=== PATIENT | female | born 1975 | race African-American/Black ===

== ENCOUNTER 2016-12-14 18:51 | Emergency (ER) | payer BC ==
[~2016-12-14] VITALS: Ht 157.5 cm; Wt 79.4 kg
[~2016-12-14 18:51] MED LIST: ADVAIR 250-501 EACH IH; ADVAIRDISKUS; ALBUTEROL NEB; ALEVE220 M1 PO; ALPRAZOLAM 0.0.25 M1; AMARYL4 MG; CIPRO250 M1 PO; FLEXERIL; GLIPIZIDE-METF1 EAC2 PO; GLUCOPHAGE500 MG PO; HCTZ; HYDROCHLOROTH12.5 MG PO; LANTUS SUBQ; NORCO 5-325 TA1 EACH PO; PAXIL 20 MG TAB20 M1; PAXIL10 MG PO; PROVENTIL IH; SENNA S TABLET1 EACH PO; WELLBUTRIN 100100 MG; XANAX
[2016-12-14] MEDS ORDERED: NORVASC10 MG PO (19:23)
[2016-12-14] MEDS ORDERED: JANUMET 50-5001 EACH PO (19:27)
[2016-12-14 19:30] LABS: ABSOLUTE NEUTROPHILS 6.5 thou/uL (1.4-8.2); BASOPHILS 1.1 % (0.0-2.0); HEMATOCRIT 39.8 % (37.0-47.0); HEMOGLOBIN 13.2 gm/dL (12.0-15.0); LYMPHOCYTES 29.5 % (24.0-44.0); MCH 27.6 pg (26.0-34.0); MCHC 33.1 g/dL (28.0-37.0); MCV 83.4 fL (80.0-100.0); MONOCYTES 4.8 % (1.0-8.0); PLATELET COUNT 329 thou/uL (150-400); POLYS 63.6 % (36.0-66.0); RBC 4.77 mil/uL (4.20-5.00); RDW 15.6 % (10.5-14.5); WBC 10.2 thou/uL (4.0-11.0)
[2016-12-14 19:33] LABS: MANUAL DIFF NO
[2016-12-14 19:43] LABS: ANION GAP 9 mmol/L (7-16); BUN 8 mg/dL (7-18); CHLORIDE 100 mmol/L (98-107); CO2 25 mmol/L (21-32); CREATININE 0.8 mg/dL (0.6-1.3); GLUCOSE 393 mg/dL (70-99); POTASSIUM 3.7 mmol/L (3.5-5.1); SODIUM 134 mmol/L (136-145)
[2016-12-14 19:47] LABS: ALBUMIN 3.3 g/dL (3.4-5.0); ALKALINE PHOSPHATASE 80 U/L (46-116); DIRECT BILIRUBIN < 0.1 mg/dL (<0.1-0.3); SGOT 10 U/L (15-37); SGPT 17 U/L (30-65); TOTAL BILIRUBIN 0.2 mg/dL (<0.1-1.0); TOTAL PROTEIN 7.2 g/dL (6.4-8.2)
[2016-12-14] MEDS ORDERED: PROTONIX40 MG PO (20:18)
[2016-12-14 20:36] VITALS: BP 132/81
== END 2016-12-14 20:37 | disposition home or self-care (01) ==
LOC: ER 18:51
PROVIDERS: Emergency Medicine
DX: R10.11 Right upper quadrant pain (principal); K62.5 Hemorrhage of anus and rectum; E11.9 Type 2 diabetes mellitus without complications; I10 Essential (primary) hypertension; J44.9 Chronic obstructive pulmonary disease, unspecified; Z88.5 Allergy status to narcotic agent; Z88.6 Allergy status to analgesic agent; F17.210 Nicotine dependence, cigarettes, uncomplicated; F10.99 Alcohol use, unspecified with unspecified alcohol-induced disorder

== ENCOUNTER 2017-04-23 22:27 | Emergency (ER) | payer BC ==
[~2017-04-23] VITALS: Ht 157.5 cm; Wt 80.7 kg
[~2017-04-23 22:27] MED LIST changes: +BACTRIM DS TAB1 EACH PO; +IBUPROFEN 600600 M1 PO; +JANUMET 50-5001 EACH PO; +NORVASC10 MG PO; +PROTONIX40 MG PO
[2017-04-23] MEDS ORDERED: ZONISAMIDE 100100 M1 PO (22:36)
[2017-04-23] MEDS ORDERED: JANUMET XR 50-1 EAC1 PO (22:36)
[2017-04-23] MEDS ORDERED: GABAPENTIN 100100 MG PO (22:37)
[2017-04-23 23:11] LABS: ABSOLUTE NEUTROPHILS 8.6 thou/uL (1.4-8.2); BASOPHILS 0.8 % (0.0-2.0); EOSINOPHILS 0.9 % (0.0-3.0); HEMATOCRIT 38.9 % (37.0-47.0); LYMPHOCYTES 29.3 % (24.0-44.0); MCH 28.3 pg (26.0-34.0); MCHC 33.5 g/dL (28.0-37.0); MCV 84.5 fL (80.0-100.0); MONOCYTES 5.7 % (1.0-8.0); PLATELET COUNT 309 thou/uL (150-400); POLYS 63.3 % (36.0-66.0); WBC 13.6 thou/uL (4.0-11.0)
[2017-04-23 23:13] LABS: MANUAL DIFF NO
[2017-04-23 23:17] LABS: CALCIUM 8.9 mg/dL (8.5-10.1); CREATININE 0.8 mg/dL (0.6-1.0); POTASSIUM 3.8 mmol/L (3.5-5.1)
[2017-04-23] MEDS ORDERED: BACTRIM DS TAB1 EAC1 PO (23:35)
[2017-04-24 00:40] VITALS: BP 122/70
== END 2017-04-24 00:40 | disposition home or self-care (01) ==
LOC: ER 22:27
PROVIDERS: Emergency Medicine
DX: N76.4 Abscess of vulva (principal); E11.9 Type 2 diabetes mellitus without complications; I10 Essential (primary) hypertension; J44.9 Chronic obstructive pulmonary disease, unspecified; F17.210 Nicotine dependence, cigarettes, uncomplicated; F10.99 Alcohol use, unspecified with unspecified alcohol-induced disorder; Z79.4 Long term (current) use of insulin; Z88.6 Allergy status to analgesic agent; Z88.5 Allergy status to narcotic agent

== ENCOUNTER 2018-01-13 17:18 | Emergency (ER) | payer BC ==
[~2018-01-13] VITALS: Ht 165.1 cm; Wt 76.2 kg
--- NOTE | ~2018-01-13 | EKG ---
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 01/14/18 0853 1808 180 Moses Baldwin MD, FACC /EPI
[~2018-01-13 17:18] MED LIST changes: +BACTRIM DS TAB1 EAC1 PO; +DOXYCYCLINE 10100 MG PO; +GABAPENTIN 100100 MG PO; +JANUMET XR 50-1 EAC1 PO; +TRAMADOL 50 MG50 MG PO; +ZONISAMIDE 100100 M1 PO
[2018-01-13 17:48] LABS: URINE BILIRUBIN NEGATIVE (Negative); URINE BLOOD NEGATIVE (Negative); URINE CLARITY CLEAR; URINE COLOR YELLOW; URINE GLUCOSE-RANDOM* 3+ (Negative); URINE KETONES NEGATIVE (Negative); URINE LEUKOCYTES-REFLEX NEGATIVE (Negative); URINE NITRITE-REFLEX NEGATIVE (Negative); URINE PROTEIN (DIPSTICK) NEGATIVE (Negative); URINE SPECIFIC GRAVITY >= 1.030 (1.005-1.035); URINE UROBILINOGEN 0.2 E.U./dl (0.2-1.0)
[2018-01-13 18:01] LABS: ABSOLUTE NEUTROPHILS 6.9 thou/uL (1.4-8.2); BASOPHILS 1.1 % (0.0-2.0); EOSINOPHILS 0.9 % (0.0-3.0); HEMATOCRIT 41.2 % (37.0-47.0); HEMOGLOBIN 13.7 gm/dL (12.0-15.0); LYMPHOCYTES 32.6 % (24.0-44.0); MCH 27.9 pg (26.0-34.0); MCHC 33.1 g/dL (28.0-37.0); MCV 84.2 fL (80.0-100.0); MONOCYTES 5.7 % (1.0-8.0); PLATELET COUNT 350 thou/uL (150-400); POLYS 59.7 % (36.0-66.0); RDW 16.3 % (10.5-14.5); WBC 11.5 thou/uL (4.0-11.0)
[2018-01-13 18:10] LABS: ANION GAP 11 mmol/L (7-16); BUN 8 mg/dL (7-18); CALCIUM 9.8 mg/dL (8.5-10.1); CHLORIDE 102 mmol/L (98-107); CO2 22 mmol/L (21-32); CREATININE 0.6 mg/dL (0.6-1.0); GLUCOSE 136 mg/dL (74-106); POTASSIUM 5.1 mmol/L (3.5-5.1); SODIUM 135 mmol/L (136-145)
[2018-01-13 18:19] LABS: ALBUMIN 3.7 g/dL (3.4-5.0); LIPASE 205 U/L (73-393); SGOT 45 U/L (15-37); SGPT 20 U/L (30-65); TOTAL BILIRUBIN 0.5 mg/dL (<0.1-1.0); TROPONIN-I < 0.04 ng/mL (<0.06)
[2018-01-13] MEDS ORDERED: REGLAN 10 MG TA10 MG PO (19:26)
[2018-01-13] MEDS ORDERED: ZOFRAN ODT4 MG PO (19:26)
[2018-01-13 19:49] VITALS: BP 143/71
== END 2018-01-13 19:59 | disposition home or self-care (01) ==
LOC: ER 17:18
PROVIDERS: Physician Assistant
DX: R51 Headache (principal); R10.9 Unspecified abdominal pain; R11.2 Nausea with vomiting, unspecified; I10 Essential (primary) hypertension; E11.9 Type 2 diabetes mellitus without complications; J44.9 Chronic obstructive pulmonary disease, unspecified; F17.210 Nicotine dependence, cigarettes, uncomplicated; Z88.5 Allergy status to narcotic agent

== ENCOUNTER 2018-04-26 18:46 | Emergency (ER) | payer BC ==
[~2018-04-26] VITALS: Ht 160 cm; Wt 83.0 kg
--- NOTE | ~2018-04-26 | EKG ---
[address] [address] [facility] [place] [address] ELECTROCARDIOGRAM REPORT Name: EMANUEL OTREGA 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 04/27/18 0909 1920 20 Moses Baldwin MD, FACC /EPI
[~2018-04-26 18:46] MED LIST changes: +REGLAN 10 MG TA10 MG PO; +ZOFRAN ODT4 MG PO
[2018-04-26 20:01] LABS: ABSOLUTE NEUTROPHILS 7.2 thou/uL (1.4-8.2); BASOPHILS 0.8 % (0.0-2.0); EOSINOPHILS 1.3 % (0.0-3.0); HEMATOCRIT 42.9 % (37.0-47.0); HEMOGLOBIN 14.1 gm/dL (12.0-15.0); LYMPHOCYTES 33.4 % (24.0-44.0); MCH 27.6 pg (26.0-34.0); MCHC 32.9 g/dL (28.0-37.0); MCV 83.8 fL (80.0-100.0); MONOCYTES 5.6 % (1.0-8.0); PLATELET COUNT 316 thou/uL (150-400); POLYS 58.9 % (36.0-66.0); RBC 5.11 mil/uL (4.20-5.00); RDW 14.8 % (10.5-14.5); WBC 12.2 thou/uL (4.0-11.0)
[2018-04-26 20:07] LABS: ANION GAP 9 mmol/L (7-16); BUN 11 mg/dL (7-18); CALCIUM 9.6 mg/dL (8.5-10.1); CHLORIDE 100 mmol/L (98-107); CO2 24 mmol/L (21-32); GLUCOSE 200 mg/dL (74-106); POTASSIUM 3.9 mmol/L (3.5-5.1); SODIUM 133 mmol/L (136-145)
[2018-04-26 20:15] LABS: ALBUMIN 3.9 g/dL (3.4-5.0); SGOT 20 U/L (15-37); SGPT 22 U/L (30-65); TOTAL BILIRUBIN 0.2 mg/dL (<0.1-1.0); TOTAL PROTEIN 8.9 g/dL (6.4-8.2); TROPONIN-I <0.06 ng/mL (<0.06)
[2018-04-26] MEDS ORDERED: VIBRAMYCIN 100100 M2 PO (20:48)
[2018-04-26] MEDS ORDERED: PROMETH-CODEIN 65 ML PO (20:48)
[2018-04-26] MEDS ORDERED: PREDNISONE 20 M20 M1 PO (20:48)
[2018-04-26 21:04] VITALS: BP 143/77
== END 2018-04-26 21:09 | disposition home or self-care (01) ==
LOC: ER 18:46
PROVIDERS: Physician Assistant
DX: J44.1 Chronic obstructive pulmonary disease with (acute) exacerbation (principal); I10 Essential (primary) hypertension; E11.9 Type 2 diabetes mellitus without complications; F17.210 Nicotine dependence, cigarettes, uncomplicated; Z88.5 Allergy status to narcotic agent

== ENCOUNTER 2019-05-26 23:15 | Emergency (ER) | payer BC ==
[~2019-05-26] VITALS: Ht 157.5 cm; Wt 81.7 kg
[~2019-05-26 23:15] MED LIST changes: +PREDNISONE 20 M20 M1 PO; +PROMETH-CODEIN 65 ML PO; +VIBRAMYCIN 100100 M2 PO
[2019-05-27] MEDS ORDERED: OMEPRAZOLE40 MG PO (00:21)
[2019-05-27 00:35] LABS: ABSOLUTE NEUTROPHILS 7.2 thou/uL (1.4-8.2); BASOPHILS 0.9 % (0.0-2.0); EOSINOPHILS 1.2 % (0.0-3.0); HEMATOCRIT 38.5 % (37.0-47.0); HEMOGLOBIN 12.4 gm/dL (12.0-15.0); LYMPHOCYTES 35.2 % (24.0-44.0); MCH 27.9 pg (26.0-34.0); MCHC 32.3 g/dL (28.0-37.0); MCV 86.4 fL (80.0-100.0); MONOCYTES 5.5 % (1.0-8.0); PLATELET COUNT 369 thou/uL (150-400); POLYS 57.2 % (36.0-66.0); RBC 4.46 mil/uL (4.20-5.00); RDW 15.4 % (10.5-14.5); WBC 12.5 thou/uL (4.0-11.0)
[2019-05-27 00:39] LABS: ANION GAP 10 mmol/L (7-16); BUN 8 mg/dL (7-18); CHLORIDE 103 mmol/L (98-107); CO2 23 mmol/L (21-32); CREATININE 0.7 mg/dL (0.6-1.0); GLUCOSE 161 mg/dL (74-106); POTASSIUM 3.5 mmol/L (3.5-5.1); SODIUM 136 mmol/L (136-145)
[2019-05-27 00:47] LABS: TROPONIN-I <0.06 ng/mL (<0.06)
[2019-05-27 02:27] VITALS: BP 186/85
--- NOTE | 2019-05-27 14:46 | EKG ---
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: ANGELY : 1975 Requested By: Sarika Patel Order Number: [id number] MD: Dante Espino Measurements Intervals [place] Rate: 98 P: 30 CT: 137 QRS: 22 QRSD: 81 T: 13 QT: 379 QTc: 484 Interpretive Statements Sinus rhythm Probable left atrial enlargement Low voltage, precordial leads Septal Q-wave Baseline wander in lead(s) V1 Compared to ECG 04/26/2018 19:21:47 Low QRS voltage now present Myocardial infarct finding now present Sinus tachycardia no longer present ST (T wave) deviation no longer present Electronically Signed On 05-27-2019 14:46:16 CDT by Dante Espino [email or web address] <ELECTRONICALLY SIGNED> By: Dante Espino MD 05/27/19 1446 2323 2323 Dante Espino MD /EPI
== END 2019-05-27 02:45 | disposition home or self-care (01) ==
LOC: ER 23:15
PROVIDERS: Emergency Medicine
DX: R06.00 Dyspnea, unspecified (principal); R07.89 Other chest pain; F17.210 Nicotine dependence, cigarettes, uncomplicated; E11.9 Type 2 diabetes mellitus without complications; I10 Essential (primary) hypertension; J44.9 Chronic obstructive pulmonary disease, unspecified; J45.909 Unspecified asthma, uncomplicated; Z88.8 Allergy status to other drugs, medicaments and biological substances; Z79.4 Long term (current) use of insulin

== ENCOUNTER 2019-08-01 09:51 | Emergency (ER) | payer BC ==
[~2019-08-01] VITALS: Ht 157.5 cm; Wt 80.7 kg
[~2019-08-01 09:51] MED LIST changes: +OMEPRAZOLE40 MG PO
[2019-08-01] MEDS ORDERED: FLEXERIL PO (10:11)
[2019-08-01 10:46] LABS: BASOPHILS 0.9 % (0.0-2.0); EOSINOPHILS 1.3 % (0.0-3.0); HEMATOCRIT 40.5 % (37.0-47.0); HEMOGLOBIN 13.7 gm/dL (12.0-15.0); LYMPHOCYTES 36.6 % (24.0-44.0); MCH 28.6 pg (26.0-34.0); MCHC 33.8 g/dL (28.0-37.0); MCV 84.5 fL (80.0-100.0); MONOCYTES 4.4 % (1.0-8.0); PLATELET COUNT 358 thou/uL (150-400); POLYS 56.8 % (36.0-66.0); RBC 4.79 mil/uL (4.20-5.00); RDW 14.7 % (10.5-14.5); WBC 8.8 thou/uL (4.0-11.0)
[2019-08-01 10:57] LABS: CALCIUM 9.3 mg/dL (8.5-10.1); CREATININE 0.6 mg/dL (0.6-1.0); POTASSIUM 3.3 mmol/L (3.5-5.1)
[2019-08-01 10:58] LABS: MAGNESIUM 1.8 mg/dL (1.8-2.4)
[2019-08-01 11:25] VITALS: BP 151/86
--- NOTE | 2019-08-02 19:07 | EKG ---
[address] [place] [address] ELECTROCARDIOGRAM REPORT Name: EMANUEL ORTEGA [facility]: [facility] [id number] Admission: 08/01/19 Attend Phys: Discharge: 08/01/19 Date of : 73 Report #: [id number] THIS REPORT FOR: //name// [facility] ED Test Date: 2019-08-01 Test Time: 10:35:10 Pat Name: EMANUEL ORTEGA Department: Room: Gender: F Balance Bridge Inspector: gaby ovalles : 1975 Requested By: Willy Sidhu Order Number: [id number] MD: Moses Baldwin Measurements Intervals [place] Rate: 91 P: 34 NV: 146 QRS: 29 QRSD: 63 T: 22 QT: 413 QTc: 509 Interpretive Statements Sinus rhythm Probable anteroseptal infarct, old Compared to ECG 05/26/2019 23:23:36 No significant change was found Electronically Signed On 08-02-2019 19:07:16 WAREHOUSE ORDER SELECTOR by Moses Baldwin [email or web address] <ELECTRONICALLY SIGNED> By: Moses Baldwin MD, [facility] 08/02/19 1907 1035 1035 Moses Baldwin MD, FACC /EPI
== END 2019-08-01 11:25 | disposition home or self-care (01) ==
LOC: ER 09:51
PROVIDERS: Emergency Medicine
DX: B34.9 Viral infection, unspecified (principal); R07.9 Chest pain, unspecified; R42 Dizziness and giddiness; I10 Essential (primary) hypertension; E11.9 Type 2 diabetes mellitus without complications; J44.9 Chronic obstructive pulmonary disease, unspecified; F17.210 Nicotine dependence, cigarettes, uncomplicated; Z88.6 Allergy status to analgesic agent

== ENCOUNTER 2020-02-12 21:44 | Emergency (ER) | payer BC ==
[~2020-02-12] VITALS: Ht 152.4 cm; Wt 81.7 kg
[~2020-02-12 21:44] MED LIST changes: +FLEXERIL PO
[2020-02-12 23:03] VITALS: BP 138/84
== END 2020-02-12 22:55 | disposition home or self-care (01) ==
LOC: ER 21:44
DX: S66.812A Strain of other specified muscles, fascia and tendons at wrist and hand level, left hand, initial encounter (principal); I10 Essential (primary) hypertension; E11.9 Type 2 diabetes mellitus without complications; J44.9 Chronic obstructive pulmonary disease, unspecified; F17.210 Nicotine dependence, cigarettes, uncomplicated; Z79.899 Other long term (current) drug therapy; Z79.4 Long term (current) use of insulin; Z88.8 Allergy status to other drugs, medicaments and biological substances; W50.0XXA Accidental hit or strike by another person, initial encounter; Y93.89 Activity, other specified; Y92.89 Other specified places as the place of occurrence of the external cause; Y99.8 Other external cause status

== ENCOUNTER 2020-04-06 20:45 | Emergency (ER) | payer BC ==
[~2020-04-06] VITALS: Ht 157.5 cm; Wt 81.2 kg
[2020-04-06 21:31] LABS: ABSOLUTE NEUTROPHILS 4.7 thou/uL (1.4-8.2); EOSINOPHILS 1.6 % (0.0-3.0); HEMATOCRIT 43.4 % (37.0-47.0); HEMOGLOBIN 14.6 gm/dL (12.0-15.0); LYMPHOCYTES 26.6 % (24.0-44.0); MCH 28.8 pg (26.0-34.0); MCHC 33.7 g/dL (28.0-37.0); MCV 85.5 fL (80.0-100.0); MONOCYTES 7.8 % (1.0-8.0); PLATELET COUNT 325 thou/uL (150-400); RBC 5.07 mil/uL (4.20-5.00); RDW 14.5 % (10.5-14.5); WBC 7.4 thou/uL (4.0-11.0)
[2020-04-06 21:47] LABS: CALCIUM 9.3 mg/dL (8.5-10.1); CREATININE 0.9 mg/dL (0.6-1.0); POTASSIUM 3.8 mmol/L (3.5-5.1)
[2020-04-06 21:52] LABS: ALBUMIN 4.1 g/dL (3.4-5.0); TOTAL BILIRUBIN 0.2 mg/dL (0.2-1.0); TOTAL PROTEIN 8.4 g/dL (6.4-8.2)
[2020-04-06 21:56] LABS: URINE BILIRUBIN NEGATIVE (Negative); URINE BLOOD NEGATIVE (Negative); URINE CLARITY CLEAR; URINE COLOR YELLOW; URINE GLUCOSE-RANDOM* 3+ (Negative); URINE KETONES NEGATIVE (Negative); URINE LEUKOCYTES-REFLEX NEGATIVE (Negative); URINE NITRITE-REFLEX NEGATIVE (Negative); URINE PROTEIN (DIPSTICK) NEGATIVE (Negative); URINE SPECIFIC GRAVITY <= 1.005 (1.005-1.035); URINE UROBILINOGEN 0.2 E.U./dl (0.2-1.0)
[2020-04-06 22:55] VITALS: BP 155/97
== END 2020-04-06 22:57 | disposition home or self-care (01) ==
LOC: ER 20:45
PROVIDERS: Emergency Medicine
DX: R42 Dizziness and giddiness (principal); J30.9 Allergic rhinitis, unspecified; E11.65 Type 2 diabetes mellitus with hyperglycemia; I10 Essential (primary) hypertension; J44.9 Chronic obstructive pulmonary disease, unspecified; F17.210 Nicotine dependence, cigarettes, uncomplicated; Z79.899 Other long term (current) drug therapy; Z79.4 Long term (current) use of insulin; Z20.828 Contact with and (suspected) exposure to other viral communicable diseases

== ENCOUNTER 2020-04-16 23:43 | Emergency (ER) | payer BC ==
[~2020-04-16] VITALS: Ht 157.5 cm; Wt 80.7 kg
[2020-04-17 01:06] LABS: ABSOLUTE NEUTROPHILS 3.9 thou/uL (1.4-8.2); BASOPHILS 0.6 % (0.0-2.0); EOSINOPHILS 0.9 % (0.0-3.0); HEMATOCRIT 41.5 % (37.0-47.0); HEMOGLOBIN 13.9 gm/dL (12.0-15.0); LYMPHOCYTES 44.8 % (24.0-44.0); MCH 28.5 pg (26.0-34.0); MCHC 33.5 g/dL (28.0-37.0); MCV 85.2 fL (80.0-100.0); PLATELET COUNT 293 thou/uL (150-400); POLYS 48.7 % (36.0-66.0); RBC 4.88 mil/uL (4.20-5.00); RDW 14.2 % (10.5-14.5)
[2020-04-17 01:09] LABS: CALCIUM 9.1 mg/dL (8.5-10.1); CREATININE 0.7 mg/dL (0.6-1.0); POTASSIUM 3.6 mmol/L (3.5-5.1)
[2020-04-17 04:16] VITALS: BP 154/101
--- NOTE | 2020-04-17 07:52 | EKG ---
[facility] [place] [address] [place] [address] ELECTROCARDIOGRAM REPORT Name: EMANUEL ORTEGA [facility] [id number] Admission: 04/16/20 Attend Phys: Discharge: 04/17/20 Date of : 73 Report #: [id number] THIS REPORT FOR: cc: FAM - No family physician/PCP FAM - No family physician/PCP Moses Baldwin MD [facility] THIS REPORT FOR: //name// [facility] ED Test Date: 2020-04-17 Test Time: 02:27:08 Pat Name: EMANUEL ORTEGA Department: Room: Gender: F Pathology Technologist: : 1975 Requested By: Willy Sidhu Order Number: [id number] MD: Moses Baldwin Measurements Intervals [place] Rate: 84 P: 36 [place]: 150 QRS: 29 QRSD: 87 T: 26 QT: 361 QTc: 427 Interpretive Statements Sinus rhythm Borderline T abnormalities, anterior leads Compared to ECG 08/01/2019 10:35:10 Septal Q waves are no longer present Electronically Signed On 04-17-2020 7:52:01 CDT by Moses Baldwin [email or web address] <ELECTRONICALLY SIGNED> By: Moses Baldwin MD, FAC 04/17/20 0752 6 Moses Baldwin MD, [facility] /EPI
== END 2020-04-17 04:05 | disposition home or self-care (01) ==
LOC: ER 23:43
PROVIDERS: Emergency Medicine
DX: R20.2 Paresthesia of skin (principal); I10 Essential (primary) hypertension; J44.9 Chronic obstructive pulmonary disease, unspecified; E11.9 Type 2 diabetes mellitus without complications; F17.210 Nicotine dependence, cigarettes, uncomplicated; Z79.899 Other long term (current) drug therapy; Z88.8 Allergy status to other drugs, medicaments and biological substances